=== PATIENT | male | born 1965 | race Caucasian/White ===

== ENCOUNTER → 2017-10-12 | Outpatient (CLI) | payer OTHER ==
--- NOTE | 2017-10-12 12:27 | Diagnostic Imaging Report ---
PROCEDURE: CT CHEST WITHOUT CONTRAST CT scan of the chest WITHOUT intravenous contrast, using standard protocol. TECHNIQUE: The chest was scanned utilizing a multidetector helical scanner from the apex to the level of the adrenal glands. No IV contrast was administered because per physicians request. Coronal and sagittal multiplanar reformations were obtained. COMPARISON: None. INDICATIONS: CHRONIC OBSTRUCTIVE PULMONARY DISEASE, PNEUMONIA FINDINGS: Lines/tubes: None. Lungs and Airways: Marked bilateral centrilobular emphysematous changes, worse in the upper lobes. Linear opacities in the right upper, right, middle, and bilateral lower lobes, consistent with scarring. 2.7 x 1.0 x 2.7 cm spiculated density in the lateral left lower lobe (series 3, image 19, and sagittal image 116), extending to the pleural surface, with associated linear opacities and upward tenting of the hemidiaphragm. Mild central bronchial wall thickening. No nodules or consolidation. Incidental note is made of an azygos lobe. Small amount of dependent debris in the trachea (series 3, image 33) and proximal aspect of the right middle lobe bronchus (series 3, image 77), likely representing mucus. No endobronchial lesions. Pleura: No effusion, or pneumothorax. Heart and mediastinum: Thyroid is unremarkable. Heart size is normal. No pericardial effusion. Atherosclerotic calcification of the coronary arteries and thoracic aortic arch. Aorta is non-aneurysmal. Main pulmonary artery is normal in caliber. Moderate hiatal hernia. Lymph nodes: No mediastinal, hilar, or axillary adenopathy. Abdomen: Limited views of the upper abdomen show no abnormality within the visualized liver, spleen, pancreas, or kidneys. The adrenal glands are normal. Partially visualized. IVC filter Bones: No acute bony abnormalities. No aggressive lytic lesion. Mild anterior wedge deformity of the T11 and T10 vertebral bodies. Generalized osteopenia. Cachectic appearance. IMPRESSION: 1. Marked bilateral centrilobular emphysematous changes. 2. 2.7 cm spiculated density in the lateral left lower lobe likely represents confluent scarring. Primary bronchogenic neoplasm is still, however, a diagnostic consideration, given the COPD changes. Prior films, if available, would be helpful for comparison. PET/CT would be helpful for further evaluation, given the likely high risk for tissue diagnosis. 3. Moderate hiatal hernia. John Peters M.D. Dictated by: John Peters M.D. on 10/12/2017 at 12:29 Electronically approved by: John Peters M.D. on 10/12/2017 at 12:29
--- NOTE | 2017-10-12 12:29 | Diagnostic Imaging Report ---
PROCEDURE:X-RAY MODIFIED BARIUM SWALLOW COMPARISON:None. INDICATIONS:Pneumonia. DISCUSSION:Fluoroscopic examination was performed in conjunction with speech pathology, during swallowing of a variety of thin and thick liquid consistencies. CONCLUSION: No penetration or aspiration. Please see the report from speech pathology for complete details. Dictated by: Ajay Williamson M.D. on 10/12/2017 at 12:31 Electronically approved by: Ajay Williamson M.D. on 10/12/2017 at 12:31
== END ==
LOC: CT 09:56
PROVIDERS: ATTEND Internal Medicine Critical Care Medicine
DX: J18.9 Pneumonia, unspecified organism (principal); J44.9 Chronic obstructive pulmonary disease, unspecified; K44.9 Diaphragmatic hernia without obstruction or gangrene; R91.1 Solitary pulmonary nodule
CPT/HCPCS: 71250; 74230